=== PATIENT | male | born 1950 | race Caucasian/White ===

== ENCOUNTER 2016-07-22 13:00 | Emergency (ER) | payer MEDICARE, BC ==
--- NOTE | 2016-07-22 14:50 | EDM.PDOC ---
ED HPI GENERAL MEDICAL PROBLEM - General Chief Complaint: General Stated Complaint: MEDICAL VIA [facility] Time Seen by Provider: 07/22/16 14:31 Source of Information: Reports: Patient, Family, RN notes reviewed History Limitations: Reports: No limitations - History of Present Illness INITIAL COMMENTS - FREE TEXT/NARRATIVE: 66-year-old gentleman presents emergency department today complaint of nausea and vomiting he has had 2 episodes of nausea and vomiting one last night one today one today was preceded by a syncopal event he is unclear if he hit his head or not he also takes Coumadin as he has a history of blood clots, denies any focal neurologic deficit denies any chest pain denies Pain Score (Numeric/FACES): 0 - Related Data Allergies Allergy/AdvReac Type Severity Reaction Status Date / Time mushroom Allergy Vomiting Verified 07/22/16 13:41 shellfish derived Allergy Vomiting Verified 07/22/16 13:41 tetracycline Allergy Vomiting Verified 07/22/16 13:41 Home Meds: Home Meds Aspirin 81 mg PO DAILY 07/22/16 [History] Carvedilol [Carvedilol] 25 mg PO BID 07/22/16 [History] Famotidine [Take Home: Famotidine 20 MG, 3 Tab Pack] 20 mg PO DAILY 07/22/16 [ History] Glimepiride 4 mg PO BIDMEALS 07/22/16 [History] SitaGLIPtin [Januvia] 100 mg PO DAILY 07/22/16 [History] Spironolactone [Aldactone] 25 mg PO DAILY 07/22/16 [History] Valsartan 160 mg PO DAILY 07/22/16 [History] Warfarin [Coumadin] 5 mg PO DAILY 07/22/16 [History] atorvaSTATin [Lipitor] 40 mg PO BEDTIME 07/22/16 [History] metFORMIN [Glucophage] 1,000 mg PO BIDMEALS 07/22/16 [History] Past Medical History Cardiovascular History: Reports: CAD, [place] Gastrointestinal History: Reports: GERD Musculoskeletal History: Reports: Osteoarthritis Endocrine/Metabolic History: Reports: Diabetes, type II - Past Surgical History Cardiovascular Surgical History: Reports: Coronary artery stent GI Surgical History: Reports: Cholecystectomy Social & Family History - Tobacco Use Smoking Status *Q: Never Smoker - Recreational Drug Use Recreational Drug Use: No ED ROS GENERAL - Review of Systems Review Of Systems: See Below Constitutional: Reports: no symptoms HEENT: Reports: No symptoms Respiratory: Reports: No Symptoms Cardiovascular: Reports: No symptoms GI/Abdominal: Reports: Nausea, Vomiting : Reports: no symptoms Musculoskeletal: Reports: no symptoms Skin: Reports: no symptoms ED EXAM, GENERAL - Physical Exam Exam: See Below Free Text/Narrative:: General: Male, not in any distress, alert and oriented x3 HEENT: head is atraumatic normocephalic, eyes pupils equal round reactive to light, sclera clear no conjunctivitis appreciated. Ears tympanic membranes clear and mccarthy landmarks and light reflex are present bilaterally canals are clear. Nose no septal deviation, nares are clear, no blood present. Mouth mucosa is moist and pink no erythema or exudate noted in soft palate, tongue is midline uvula is midline, dentition is intact. Neck: Supple no thyromegaly no tracheal deviation. Nodes: Cervical nodes subclavicular nodes nontender no palpable lymphadenopathy noted. Lungs: clear to auscultation bilaterally with symmetrical respirations, no adventitious noise appreciated. CV: Regular rate and rhythm S1 and S2 appreciated no murmurs rubs or gallops noted. Abdomen: Soft, nontender, no palpable masses or organomegaly appreciated, no distention no guarding bowel sounds are present, . Neuro: Cranial nerves II through XII grossly intact Skin: Warm and dry, intact Extremities: No lower extremity edema appreciated, pedal pulse is +2. Course - Vital Signs Last Recorded V/S: Last Vital Signs Temp 96 F 07/22/16 13:46 Pulse 68 07/22/16 15:20 Resp 16 07/22/16 15:20 BP 115/76 07/22/16 15:20 Pulse Ox 99 07/22/16 15:20 - Orders/Labs/Meds Orders: Active Orders 24 hr Category Date Time Status Cardiac Monitoring [RC] .As Directed Care 07/22/16 14:44 Active EKG Documentation Completion [RC] ASDIRECTED Care 07/22/16 14:46 Active EKG 12 Lead [EK] Stat Ther 07/22/16 14:46 Ordered Labs: Laboratory Tests 07/22/16 07/22/16 07/22/16 Range/Units 15:17 15:17 15:23 WBC 14.7 H (4.5-11.0) K/uL RBC 4.58 (4.30-5.90) M/uL Hgb 13.7 (12.0-15.0) g/dL Hct 39.7 L (40.0-54.0) % MCV 87 (80-98) fL MCH 30 (27-31) pg MCHC 35 (32-36) % Plt Count 215 (150-400) K/uL Neut % (Auto) 87 H (36-66) % Lymph % (Auto) 5 L (24-44) % Mcdowell % (Auto) 7 H (2-6) % Eos % (Auto) 1 L (2-4) % Baso % (Auto) 0 (0-1) % Sodium 133 L (140-148) mmol/L Potassium 4.9 (3.6-5.2) mmol/L Chloride 102 (100-108) mmol/L Carbon Dioxide 26 (21-32) mmol/L Anion Gap 9.9 (5.0-14.0) mmol/L BUN 38 H (7-18) mg/dL Creatinine 1.3 (0.8-1.3) mg/dL Est Cr Clr Drug Dosing 62.18 mL/min Estimated GFR (MDRD) 55 L (>60) Glucose 200 H (74-106) mg/dL Calcium 9.3 (8.5-10.1) mg/dL Total Bilirubin 1.7 H (0.2-1.0) mg/dL AST 18 (15-37) U/L ALT 49 (12-78) U/L Alkaline Phosphatase 55 (46-116) U/L Troponin I < 0.017 (0.000-0.056) ng/mL Total Protein 6.3 L (6.4-8.2) g/dL Albumin 3.5 (3.4-5.0) g/dL Globulin 2.8 (2.3-3.5) g/dL Albumin/Globulin Ratio 1.2 (1.2-2.2) Urine Color Yellow Urine Appearance Clear Urine pH 5.0 (4.5-8.0) Ur Specific [place] 1.020 (1.008-1.030) Urine Protein Negative (NEGATIVE) mg/dL Urine Glucose (UA) 100 H (NEGATIVE) mg/dL Urine Ketones Negative (NEGATIVE) mg/dL Urine Occult Blood Negative (NEGATIVE) Urine Nitrite Negative (NEGAITVE) Urine Bilirubin Negative (NEGATIVE) Urine Urobilinogen Normal (NORMAL) mg/dL Ur Leukocyte Esterase Negative (NEGATIVE) Urine RBC 0-5 (0-5) Urine WBC 5-10 H (0-5) Ur Epithelial Cells Few Amorphous Sediment Few Urine Bacteria Rare Urine Mucus Moderate Urine Other See note Departure - Departure Time of Disposition: 16:50 Disposition: Home, Self-Care 01 Condition: good Clinical Impression: Gastroenteritis Forms: ED Department Discharge Additional Instructions: use Zofran as needed for nausea and vomiting symptoms, please followup with your primary care provider upon return home if no improvement - My Orders Last 24 Hours: My Active Orders 07/22/16 14:44 Cardiac Monitoring [RC] .As Directed 07/22/16 14:46 EKG Documentation Completion [RC] ASDIRECTED EKG 12 Lead [EK] Stat - Assessment/Plan Last 24 Hours: My Active Orders 07/22/16 14:44 Cardiac Monitoring [RC] .As Directed 07/22/16 14:46 EKG Documentation Completion [RC] ASDIRECTED EKG 12 Lead [EK] Stat Plan: Assessment Acuity = acute Site and laterality = gastroenteritis complaint patient with known history coronary artery disease as well as 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 Etiology = probably viral cause Manifestations = nausea vomiting Location of injury = home Lab values = WBC elevated at 14.7 consistent leukocytosis, sodium low at 133 consistent hyponatremia glucose elevated at 200 consistent hyperglycemia total bilirubin elevated at 1.7 consistent hyperbilirubinemia troponin is negative urinalysis reveals 5-10 WBCs consistent with pyuria,CT scan of the head is negative Plan discussed lab results with him, recommend symptomatic care at this time prescription written for Nacho he is to follow up with his primary care father return home Patient was in agreement with the plan all questions were answered, they were instructed to return to the emergency department or call for worsening symptoms. This note was dictated using [employer] voice recognition software please call with any questions.
--- NOTE | 2016-07-22 15:08 | CT ---
Head wo Cont HISTORY: fall, on warfarin TECHNIQUE: Spiral noncontrast CT scan of the brain was obtained along with high-resolution bone wind ow reconstructions. FINDINGS: No acute intracranial hemorrhage or infarct is identified. There is no mass lesion, mass effect, mid line shift, or ventricular abnormality. No abnormal extra-axial fluid collections are seen. Visualiz ed paranasal sinuses and mastoid air cells are clear. Bone windows show no evidence for skull fractu re. IMPRESSION: No acute intracranial abnormality identified. Report was called to Officer in the emergency department at 1505 hours. Total DLP 858 mGycm
[2016-07-22 15:21] VITALS: BP 115/76
== END 2016-07-22 17:20 | disposition home or self-care (01) ==
LOC: JP.ED 13:00
DX: K52.9 Noninfective gastroenteritis and colitis, unspecified (principal); I25.2 Old myocardial infarction; I25.10 Atherosclerotic heart disease of native coronary artery without angina pectoris; K21.9 Gastro-esophageal reflux disease without esophagitis; E11.9 Type 2 diabetes mellitus without complications; Z95.5 Presence of coronary angioplasty implant and graft; Z90.49 Acquired absence of other specified parts of digestive tract; Z79.01 Long term (current) use of anticoagulants; Z79.82 Long term (current) use of aspirin; Z79.899 Other long term (current) drug therapy; Z88.8 Allergy status to other drugs, medicaments and biological substances; Z91.013 Allergy to seafood; Z91.018 Allergy to other foods
CPT/HCPCS: 36415; 70450; 70450-26; 80053; 81001; 84484; 85025; 93005; 93010; 99283; 99285-25

== ENCOUNTER 2016-09-17 16:10 | Emergency (ER) | payer MEDICARE, BC ==
[2016-09-17 16:28] VITALS: BP 100/62
--- NOTE | 2016-09-17 17:17 | EDM.PDOC ---
ED HPI GENERAL MEDICAL PROBLEM - General Chief Complaint: Back Pain or Injury Stated Complaint: LOW BACK & RT HIP PAIN Time Seen by Provider: 09/17/16 16:39 Source of Information: Reports: Patient History Limitations: Reports: No Limitations - History of Present Illness INITIAL COMMENTS - FREE TEXT/NARRATIVE: This gentleman comes in for low back pain. It's been going on for about a week or 2. It is increased if he stands if he walks if he lays down or if he sits. He had him started on prednisone 20 mg daily he took it for 5 days that he was off about 1 day and then he was put on it for another 5 days at 20 twice a day. His last dose was day before yesterday he denies any fever. There's been no leg numbness or weakness. He denies any problems with his bladder or bowels. - Related Data Allergies Allergy/AdvReac Type Severity Reaction Status Date / Time mushroom Allergy Vomiting Verified 07/22/16 13:41 shellfish derived Allergy Vomiting Verified 07/22/16 13:41 tetracycline Allergy Vomiting Verified 07/22/16 13:41 Home Meds: Home Meds Aspirin 81 mg PO DAILY 07/22/16 [History] Carvedilol [Carvedilol] 25 mg PO BID 07/22/16 [History] Famotidine [Take Home: Famotidine 20 MG, 3 Tab Pack] 20 mg PO DAILY 07/22/16 [ History] Glimepiride 4 mg PO BIDMEALS 07/22/16 [History] SitaGLIPtin [Januvia] 100 mg PO DAILY 07/22/16 [History] Spironolactone [Aldactone] 25 mg PO DAILY 07/22/16 [History] Valsartan 160 mg PO DAILY 07/22/16 [History] Warfarin [Coumadin] 5 mg PO DAILY 07/22/16 [History] atorvaSTATin [Lipitor] 40 mg PO BEDTIME 07/22/16 [History] metFORMIN [Glucophage] 1,000 mg PO BIDMEALS 07/22/16 [History] Past Medical History Cardiovascular History: Reports: CAD, [place] Gastrointestinal History: Reports: GERD Musculoskeletal History: Reports: Osteoarthritis Endocrine/Metabolic History: Reports: Diabetes, Type II - Past Surgical History Cardiovascular Surgical History: Reports: Coronary Artery Stent GI Surgical History: Reports: Cholecystectomy Social & Family History - Tobacco Use Smoking Status *Q: Never Smoker - Recreational Drug Use Recreational Drug Use: No ED ROS GENERAL - Review of Systems Review Of Systems: ROS reveals no pertinent complaints other than HPI. ED EXAM,LOWER BACK PAIN/INJURY - Physical Exam Exam: See Below Exam Limited By: No Limitations General Appearance: Alert, WD/WN, Mild Distress Eye Exam: Bilateral Eye: Normal Inspection Respiratory/Chest: Lungs Clear Cardiovascular: Regular Rate, Rhythm, No Murmur Back Exam: Paraspinal Tenderness Extremities: Normal Inspection, Other Neurological: Alert, Normal Gait, Normal Reflexes, No Motor/Sensory Deficits Skin Exam: Warm, Dry Course - Vital Signs Last Recorded V/S: Last Vital Signs Temp 36.2 C 09/17/16 16:26 Pulse 69 09/17/16 16:26 Resp 14 09/17/16 16:26 BP 100/62 09/17/16 16:26 Pulse Ox 98 09/17/16 16:26 Departure - Departure Time of Disposition: 17:19 Disposition: Home, Self-Care 01 Condition: fair Clinical Impression: Low back pain, Low back pain - Discharge Information Forms: ED Department Discharge Additional Instructions: Take Percocet 5/325, #20 tablets, one or 2 every 4 hours as needed for pain. Take Flexeril 10 mg, #15, one tablet 3 times a day for muscle spasms. Both of these medications can cause sedation and impaired driving or operating machinery. Take the methylprednisolone. Follow the package instructions. This is similar to prednisone. The hepatic will ensure that you stop the medicine gradually. The Percocet already contains Tylenol. H Percocet tablet counts as one 325 mg Tylenol tablets. You should limit yourself to no more than 4000 mg of Tylenol per day. Some authorities said no more than 3000 mg per day. Follow-up with your doctor as soon as you get back. If the pain persists. You may need an MRI scan. If you suddenly developed leg weakness or problems with your bladder or bowels this could be a serious problem and you should be evaluated immediately.
== END 2016-09-17 17:39 | disposition home or self-care (01) ==
LOC: JP.ED 16:10
DX: M54.5 Low back pain (principal); I25.2 Old myocardial infarction; I25.10 Atherosclerotic heart disease of native coronary artery without angina pectoris; K21.9 Gastro-esophageal reflux disease without esophagitis; E11.9 Type 2 diabetes mellitus without complications; M19.90 Unspecified osteoarthritis, unspecified site; Z79.82 Long term (current) use of aspirin; Z79.01 Long term (current) use of anticoagulants; Z79.899 Other long term (current) drug therapy; Z95.1 Presence of aortocoronary bypass graft; Z90.49 Acquired absence of other specified parts of digestive tract; Z88.1 Allergy status to other antibiotic agents; Z91.013 Allergy to seafood; Z91.018 Allergy to other foods
CPT/HCPCS: 99283

== ENCOUNTER 2020-02-27 17:17 | Emergency (ER) | payer MEDICARE, BC ==
[2020-02-27 18:46] VITALS: BP 145/80; PULSE 78
[2020-02-27] MEDS ORDERED: Lidocaine 1% with EPINEPHrine 1:100,000 50 ML MDV INFILT STA (18:54)
[2020-02-27] MEDS ORDERED: Petrolatum,White Jelly 453.6 GM Tube TOP ONE (19:10)
--- NOTE | 2020-02-27 19:16 | EDM.PDOC ---
ED HPI GENERAL MEDICAL PROBLEM - General Chief Complaint: Laceration Stated Complaint: CUT TO LIP BY DOG Time Seen by Provider: 02/27/20 18:44 - History of Present Illness INITIAL COMMENTS - FREE TEXT/NARRATIVE: Niko was just released from [facility] after having a pacemaker placed. He is currently on Coumadin. He was riding home with his daughter when the dog also riding in the vehicle jumped into the front seat. The daughter grabbed the dog who instinctively reached out with his claw and caught the patient in the mouth causing a superficial avulsion laceration along the vermilion border of the lower lip. Unfortunately, the tissue involved in the avulsion is nonviable and very friable. The bleeding is slow but still continuing as the patient is anticoagulated with Coumadin. - Related Data Allergies Allergy/AdvReac Type Severity Reaction Status Date / Time mushroom Allergy Vomiting Verified 07/22/16 13:41 shellfish derived Allergy Vomiting Verified 07/22/16 13:41 tetracycline Allergy Vomiting Verified 07/22/16 13:41 Home Meds: Home Meds Aspirin 81 mg PO DAILY 07/22/16 [History] Famotidine [Take Home: Famotidine 20 MG, 3 Tab Pack] 20 mg PO DAILY 07/22/16 [History] Glimepiride 4 mg PO BIDMEALS 07/22/16 [History] SitaGLIPtin [Januvia] 100 mg PO DAILY 07/22/16 [History] Spironolactone [Aldactone] 25 mg PO DAILY 07/22/16 [History] Valsartan 160 mg PO DAILY 07/22/16 [History] Warfarin [Coumadin] 5 mg PO DAILY 07/22/16 [History] atorvaSTATin [Lipitor] 40 mg PO BEDTIME 07/22/16 [History] carvediloL [Carvedilol] 25 mg PO BID 07/22/16 [History] metFORMIN [Glucophage] 1,000 mg PO BIDMEALS 07/22/16 [History] Past Medical History Cardiovascular History: Reports: CAD, [place] Gastrointestinal History: Reports: GERD Musculoskeletal History: Reports: Osteoarthritis Endocrine/Metabolic History: Reports: Diabetes, Type II - Past Surgical History Cardiovascular Surgical History: Reports: Coronary Artery Stent GI Surgical History: Reports: Cholecystectomy ED ROS ENT - Review of Systems Review Of Systems: See Below Constitutional: Reports: No Symptoms HEENT: Reports: Other (Superficial avulsion laceration to the right side of the lower lip at the vermilion border.) Respiratory: Reports: No Symptoms ED EXAM, ENT - Physical Exam Exam: See Below Exam Limited By: No Limitations General Appearance: Alert, WD/WN, No Apparent Distress Mouth/Throat: Other (Small avulsion laceration of the very superficial tissue abutting the vermilion border on the right lower lip. The tissue was nonviable and with attempt to trying to tack it down, the suture just pulled right through the tissue. Therefore we trimmed the nonviable tissue back to viable tissue. There is nothing to repair at this time. A light coating of petroleum jelly was applied on the lip.) ED ENT PROCEDURES - Laceration/Wound Repair Right Lower Mouth Appearance: Superficial Distal NVT: Neuro & Vascular Intact Anesthetic Type: Local Local Anesthesia - Lidocaine (Xylocaine): 1% with EPI Local Anesthetic Volume: 1cc Exploration/Debridement/Repair: Wound Explored, Minimal Debridement, Other (The avulsion flap was nonviable and therefore it was trimmed back to viable tissue. There is nothing to close at this time.) Complications: None Course - Vital Signs Last Recorded V/S: Last Vital Signs Temp 34.6 C L 02/27/20 18:45 Pulse 78 02/27/20 18:45 Resp 16 02/27/20 18:45 BP 145/80 H 02/27/20 18:45 Pulse Ox 99 02/27/20 18:45 - Orders/Labs/Meds Orders: Active Orders 24 hr Category Date Time Status Petrolatum,White [Vaseline] Med 02/27/20 19:10 Once 1 gm TOP ONETIME ONE Meds: Medications Discontinued Medications Generic Name Dose Route Start Last Admin Trade Name Freq PRN Reason Stop Dose Admin Lidocaine/Epinephrine 2 ml 02/27/20 18:54 02/27/20 19:05 Xylocaine 1% With Epinephrine 1:100,000 INFILT 02/27/20 18:55 2 ml NOW STA Administration Departure - Departure Time of Disposition: 19:12 Disposition: Home, Self-Care 01 Clinical Impression: Laceration of lip Qualifiers: Encounter type: initial encounter Qualified Code(s): S01.511A - Laceration without foreign body of lip, initial encounter - Discharge Information *PRESCRIPTION DRUG MONITORING PROGRAM REVIEWED*: Not Applicable *COPY OF PRESCRIPTION DRUG MONITORING REPORT IN PATIENT NADEGE: Not Applicable Instructions: Mouth Laceration, [id number] Referrals: PCP,None [Primary Care Provider] - Forms: ED Department Discharge Care Plan Goals: You have been prescribed Augmentin 875/125 mg twice daily for 7 days to prevent infection. Please apply a light coating of white petroleum jelly to the area of the laceration twice daily to keep the wound moist and prevent further bleeding. Please return to the ED if you develop any signs or symptoms of infection. The lip should heal in the course of the next 5 to 7 days. Sepsis Event Note (ED) - Focused Exam Vital Signs: Vital Signs Temp Pulse Resp BP Pulse Ox 02/27/20 18:45 34.6 C L 78 16 145/80 H 99 - Problem List & Annotations (1) Laceration of lip SNOMED Code(s): 818389655 Code(s): S01.511A - LACERATION WITHOUT FOREIGN BODY OF LIP, INITIAL ENCOUNTER Status: Acute Priority: Low Current Visit: Yes Qualifiers: Encounter type: initial encounter Qualified Code(s): S01.511A - Laceration without foreign body of lip, initial encounter - Problem List Review Problem List Initiated/Reviewed/Updated: Yes - My Orders Last 24 Hours: My Active Orders 02/27/20 19:10 Petrolatum,White [Vaseline] 1 gm TOP ONETIME ONE - Assessment/Plan Last 24 Hours: My Active Orders 02/27/20 19:10 Petrolatum,White [Vaseline] 1 gm TOP ONETIME ONE Plan: Augmentin 875 mg twice daily for 7 days to prevent infection given the patient recently had a pacemaker placed at [facility].
== END 2020-02-27 20:10 | disposition home or self-care (01) ==
LOC: JP.ED 17:17
DX: S01.511A Laceration without foreign body of lip, initial encounter (principal); I25.10 Atherosclerotic heart disease of native coronary artery without angina pectoris; I25.2 Old myocardial infarction; E11.9 Type 2 diabetes mellitus without complications; M19.90 Unspecified osteoarthritis, unspecified site; Z79.01 Long term (current) use of anticoagulants; Z91.018 Allergy to other foods; Z88.1 Allergy status to other antibiotic agents; Z79.82 Long term (current) use of aspirin; Z79.84 Long term (current) use of oral hypoglycemic drugs; Z79.899 Other long term (current) drug therapy; W54.8XXA Other contact with dog, initial encounter
CPT/HCPCS: 99282; A9270-GY